=== PATIENT | male | born 1970 | race Caucasian/White ===

== ENCOUNTER 2021-11-13 14:56 | Emergency (ER) | payer BC, SELFPAY ==
--- NOTE | 2021-11-13 14:56 | ECG_ITS ---
APPROVED REPORT Exam: Resting ECG HR:77 bpm ECG Measurements Heart Rate 77 AXES AR 172 P 31 QRSd 97 QRS 18 QT 364 T 69 QTc 395 Conclusion SINUS RHYTHM NONSPECIFIC T-WAVE ABNORMALITY BORDERLINE ECG UNCONFIRMED REPORT Electronically signed by : Bonilla Coyne MD 11/15/2021 10:33:01
[2021-11-13 14:58] VITALS: BP 167/102; PULSE 79; RESP 15; TEMP 36.6; O2SAT 95; BMI 32.5
--- NOTE | 2021-11-13 15:08 | PC.NURSE ---
ED MD at
--- NOTE | 2021-11-13 15:10 | XR_ITS ---
FINAL REPORT CLINICAL HISTORY: . chest pain FINDINGS: A single PA view of the chest was obtained. There is no prior exam for comparison. The cardiac and mediastinal silhouettes are within normal limits. There are low lung volumes. The lungs are otherwise clear. There is no effusion or pneumothorax. No acute osseous abnormality is identified. IMPRESSION: No radiographic evidence of acute cardiac or pulmonary disease on this single view of the chest. Reviewed, Interpreted and Dictated by Maira Harrison MD Transcribed by Sonya Vazquez Authenticated by Maira Harrison MD on 11/13/2021 04:54:56 PM [facility]
[2021-11-13 15:26] LABS: Basophils # 0.4 K/mm3 (0-0.2); Basophils % 3.2 % (0.1-2.0); Eosinophils # 0.4 K/mm3 (0.0-0.4); Eosinophils % 3.5 % (0.1-12.0); Hematocrit 45.5 % (42.0-52.0); Hemoglobin 16.1 g/dL (14.1-18.0); Lymphocytes # 3.6 K/mm3 (0.7-4.5); Lymphocytes % 30.7 % (10-50); Mean Corpuscular HGB Conc 35.3 g/dL (31.8-35.4); Mean Corpuscular Hemoglobin 31.7 pg (27.0-31.2); Mean Corpuscular Volume 89.9 fl (80-94); Mean Platelet Volume 7.5 fl (7.4-10.4); Monocytes # 0.6 K/mm3 (0.1-1.0); Monocytes % 5.1 % (1.7-9.3); Neutrophils # 6.8 K/mm3 (1.8-7.8); Neutrophils % 57.4 % (37.0-80.0); Platelet Count 370 K/mm3 (142-424); Red Blood Count 5.06 M/mm3 (4.60-6.20); White Blood Count 11.8 K/mm3 (4.8-10.8)
[2021-11-13 15:28] LABS: Chloride 106 mmol/L (98-107); Sodium 140 mmol/L (136-145)
[2021-11-13 15:32] LABS: Blood Urea Nitrogen 17 mg/dl (9-20); Calcium 9.8 mg/dl (8.4-10.2); Carbon Dioxide 24 mmol/L (22.0-30.0); Creatinine Clearance Estimated 104 mL/min (50-200); Estimated Glomerular Filt Rate 58 ml/min (>60); GFR (African American) 70 ML/MIN (>60); Glucose 95 mg/dl (74-100)
[2021-11-13 15:49] LABS: Troponin I < 0.01 ng/ml (0.00-0.034)
--- NOTE | 2021-11-13 16:10 | PC.NURSE ---
pt had some improvement with GI cocktail
--- NOTE | 2021-11-13 17:03 | [facility].EDCP ---
ED Disposition Clinical Impression: Chest pain Disposition: Home, Self-Care Condition on Discharge: Good Instructions: DI for Gastroesophageal Reflux Disease (GERD), DI for Chest Pain Additional Instructions: Please follow-up with your primary care physician that you have been referred to you have been provided a list of doctors please call to set up your own appointment tomorrow. You have also been prescribed pantoprazole please take as prescribed. During acute flares please take Mylanta or Maalox. Please also practice good hygiene including eating 3 hours prior to bedtime, eating smaller meals, avoiding fatty and spicy foods. Please return if your symptoms worsen or do not improve. Prescriptions: Pantoprazole Sodium 40 mg PO DAILY 30 Days #30 packet Prescription Printed Referrals: Provider,Referral, [Primary Care Provider] - - Critical Care Critical Care Time: No Attestation: On 11/13/21, the high probability of a clinically significant, sudden or life threatening deterioration of the following system(s) required my full and direct attention, intervention and personal management. The time I documented below is in addition to time spent performing reported procedures but includes the following listed in this critical care notation. Medical Decision Making - Medical Records Medical records reviewed: Yes: I reviewed the patient's medical records. - [facility] Inquiry Pt receiving controlled substance: No Vital Signs: 11/13/21 14:58 11/13/21 17:12 Temperature 97.9 F 98.3 F Temperature Source Oral Pulse Rate 74 Pulse Rate [Right Radial] 79 Respiratory Rate 15 15 Blood Pressure 151/99 H Blood Pressure [Right Arm] 167/102 H Blood Pressure Mean [Right Arm] 123 Blood Pressure Source [Right Arm] Automatic Cuff Blood Pressure Position [Right Arm] Sitting 02 Sat by Pulse Oximetry 95 Oxygen Delivery Method Room Air - Lab Data Lab results reviewed: Yes: I reviewed the patient's lab results. Lab Results 11/13/21 15:00: WBC 11.8 H, RBC 5.06, Hgb 16.1, Hct 45.5, MCV 89.9, MCH 31.7 H, MCHC 35.3, RDW 13.0, Plt Count 370, MPV 7.5, Neut % (Auto) 57.4, Lymph % (Auto) 30.7, [place] % (Auto) 5.1, Eos % (Auto) 3.5, Baso % (Auto) 3.2 H, Neut # (Auto) 6.8, Lymph # (Auto) 3.6, [place] # (Auto) 0.6, Eos # (Auto) 0.4, Baso # (Auto) 0.4 H 11/13/21 15:00: Sodium 140, Potassium 4.0, Chloride 106, Carbon Dioxide 24, Anion Gap 14.0, BUN 17, Creatinine 1.30 H, Estimated Creat Clear 104, Estimated GFR 58 L, Est GFR ( Amer) 70, Glucose 95, Calcium 9.8, Troponin I < 0.01 Result diagrams: 11/13/21 15:00 11/13/21 15:00 Orders (Tests/Meds): ED MEDICATIONS Discontinued Medications Generic Name Dose Route Start Last Admin Trade Name Freq PRN Reason Stop Dose Admin Aspirin 324 mg 11/13/21 15:11 11/13/21 15:14 Aspirin 81mg Chewable Tablet PO 11/13/21 15:12 324 mg ONCE ONE Administration Belladonna Alkaloids 60 ml 11/13/21 15:12 11/13/21 15:16 Gi Cocktail 60ml Udc PO 11/13/21 15:13 60 ml ONCE ONE Administration Sodium Chloride 10 ml 11/13/21 15:10 Sodium Chloride 0.9% 10ml Flush Syringe IV 12/13/21 15:09 NEEDED PRN Maintain IV Site Medical Decision Narrative: Mr. Carlin is a 51 yo male presenting with chest pain described as burning with acid taste in his throat. Hanh is afebrile and hemodynamically stable on arrival, non toxic appearing. Breathing comfortably with no wheezing, rhales or chonchi. Bedside ECG shows no acute ischemic signs of ischemia. Bedside CXR shows normal cardiopulmonary silhouette. Basic labs, Trop are negative. Patient is given GI cocktail with complete resolution of symptoms. Patient is discharged in stable condition with PPI and informed to take mylanta and maalox for acute flare. Patient also instructed to discuss w/ his pcp regarding reoccuring chest pain. Hanh will return if symptoms reoccur. Chest Pain HPI - General Chief Complaint:
[2021-11-13 17:12] VITALS: BP 151/99; PULSE 74; RESP 15; TEMP 36.8; O2SAT 94
== END 2021-11-13 17:13 | disposition home or self-care (01) ==
PROVIDERS: Emergency Provider Student in an Organized Health Care Education/Training Program
DX: R07.89 Other chest pain (principal); K21.9 Gastro-esophageal reflux disease without esophagitis
CPT/HCPCS: 71045; 80048; 84484; 85025; 93005; 99283